=== PATIENT | female | born 1940 | race Caucasian/White ===

== ENCOUNTER 2017-01-23 12:12 | Inpatient (IN) | payer MEDICARE ==
[2017-01-23] VITALS (21 sets, daily range): BP systolic 133–218; BP diastolic 56–88; PULSE 56–76; RESP 16–22; TEMP 98.6–98.9; O2SAT 94–100
[~2017-01-23] VITALS: Ht 160 cm; Wt 66.0 kg
[~2017-01-23 12:12] MED LIST: ASPI81 CHEW; AZIT250T74 PO; CARV3.125 PO; CEFU1TAB43 PO; FLUC200T63 PO; LANTUS2P SC; LISI-360 PO; NOVOLOGP2 SQ; NYSTT TOPICAL; PANT40IN3 PO; SINE25100 PO
[2017-01-23] MEDS ORDERED: SODIUM CHLOR 0.9% 1000 ML INJ 1,000 ML IV ONE (12:18)
[2017-01-23 12:31] LABS: AUTOMATED NEUTROPHIL # 8.8 TH/MM3 (1.8-7.7); BASOPHIL # 0.1 TH/MM3 (0-0.2); BASOPHIL % 1.1 % (0.0-2.0); EOSINOPHIL # 0.3 TH/MM3 (0-0.4); EOSINOPHIL % 2.3 % (0.0-4.0); HEMATOCRIT 38.9 % (35.0-46.0); HEMO FLAGS DIFF FINAL; LYMPH % 21.8 % (9.0-44.0); LYMPHOCYTE # 2.9 TH/MM3 (1.0-4.8); MEAN CELL VOLUME 95.2 FL (80.0-100.0); MEAN CORPUSCULAR HGB CONC 33.6 % (32.0-36.0); MONO % 8.5 % (0.0-8.0); NEUT % 66.3 % (16.0-70.0); PLATELET COUNT 305 TH/MM3 (150-450); RED BLOOD COUNT 4.09 MIL/MM3 (4.00-5.30); RED CELL DISTRIBUTION WIDTH 13.7 % (11.6-17.2); WHITE BLOOD COUNT 13.3 TH/MM3 (4.0-11.0)
[2017-01-23 12:33] LABS: I-STAT POTASSIUM 4.4 MMOL/L (3.5-4.9); I-STAT SODIUM 139 MMOL/L (138-146)
--- NOTE | 2017-01-23 12:39 | RADRPT ---
EXAM DATE/TIME: 01/23/2017 12:24 [facility] COMPARISON: CT BRAIN W/O CONTRAST, October 17, 2015, 16:34. INDICATIONS : Stroke alert, right side weakness. RADIATION DOSE: 34.89 CTDIvol (mGy) This report was called at 1235. MEDICAL HISTORY : Non-responsive. SURGICAL HISTORY : Non-responsive. ENCOUNTER: Initial ACUITY: 1 day PAIN SCALE: Non-responsive LOCATION: cranial TECHNIQUE: Multiple contiguous axial images were obtained of the head. Using automated exposure control and adj ustment of the mA and/or kV according to patient size, radiation dose was kept as low as reasonably a chievable to obtain optimal diagnostic quality images. DICOM format image data is available electro nically for review and comparison. FINDINGS: CEREBRUM: Mild atrophy. No evidence of midline shift, mass lesion, hemorrhage or acute infarction. No extra-ax ial fluid collections are seen. POSTERIOR FOSSA: The cerebellum and brainstem are intact. The 4th ventricle is midline. The cerebellopontine angle i s unremarkable. EXTRACRANIAL: The visualized portion of the orbits is intact. SKULL: The calvaria is intact. No evidence of skull fracture. CONCLUSION: Mild atrophy otherwise negative.. Pierre Rod MD FACR on January 23, 2017 at 12:37 Board Certified Radiologist. This report was verified electronically.
[2017-01-23] MEDS ORDERED: niCARdipine INJ 25 MG in SODIUM CHLOR 0.9% 250 ML INJ 240 ML IV ONE (12:45)
[2017-01-23] MEDS ORDERED: LABETALOL HCL 100 MG/20 ML VIAL IV PUSH ONE (12:45)
[2017-01-23 12:48] LABS: PROTHROMBIN TIME - PATIENT 10.9 SEC (9.8-11.6)
[2017-01-23 13:01] LABS: CREATINE KINASE 252 U/L (26-192)
[2017-01-23 13:13] LABS: CKMB 2.3 NG/ML (0.5-3.6)
[2017-01-23 13:24] LABS: BACTERIA, URINE MANY /hpf; BLOOD, URINE NEG (NEG); GLUCOSE,URINE 300 mg/dL (NEG); KETONE, URINE NEG (NEG); NITRITE,URINE POS (NEG); SQUAMOUS EPITHELIAL CELL URINE 1 /hpf (0-5); URINE COLOR LIGHT-YELLOW (YELLW/STRAW)
[2017-01-23] MEDS ORDERED: MISCELLANEOUS NURSING INFORMATION XX PRN (13:45)
[2017-01-23] MEDS ORDERED: SODIUM CHLORIDE 0.9% 50 ML BAG IVF ONE (13:45)
[2017-01-23] MEDS ORDERED: ALTEPLASE BOLUS 9 MG/9 ML SYR IV ONE (13:45)
--- NOTE | 2017-01-23 13:52 | PD ---
HPI Chief Complaint: Stroke Alert Time Seen by Provider: 12:18 Travel History International Travel<30 days: No Contact w/Intl Traveler<30days: No Traveled to known affect area: No History of Present Illness HPI Patient is a 76 year old female brought in by EMS as a stroke alert. Per EMS, symptoms started about 15 minutes prior to their arrival, which was 30 minutes from arrival in the ED. Patient developed right sided weakness and slurred speech per EMS. Patient is awake and alert, and says she feels "ok." She says she has not had any headache. She denies nausea or vomiting. She denies chest pain or shortness of breath. She has not noticed that her right side is weak. Per daughter, she had a stroke about a year ago and was here in the hospital for a while. Daughter states at that time she had found her on the porch barely breathing. She has been in the detention since that episode. PFSH Past Medical History Autoimmune Disease: Yes (PARKINSONS) Depression: Yes High Cholesterol: Yes Dementia: Yes Diabetes: Yes Patient Takes Glucophage: Yes Diminished Hearing: No Hypertension: Yes Parkinson's Disease: Yes Menopausal: Yes Past Surgical History Surgical History: No Previous Surgery Social History Alcohol Use: No Tobacco Use: Yes Substance Use: No Allergies-Medications (Allergen,Severity, Reaction): Coded Allergies: iodine (Unverified Allergy, Unknown, IVP, 01/23/17) potassium iodide (Unverified Allergy, Unknown, IVP, 01/23/17) povidone-iodine (Unverified Allergy, Unknown, IVP, 01/23/17) sodium iodide (Unverified Allergy, Unknown, IVP, 01/23/17) sodium iodide (Unverified Allergy, Unknown, IVP, 01/23/17) Reported Meds & Prescriptions Reported Meds & Active Scripts Active Reported Vistaril (Hydroxyzine Pamoate) 25 Mg Cap 25 Mg PO Q8HR PRN Nicotine Patch (Nicotine) 14 Mg/24 Hr Patch 14 Mg T-DERMAL DAILY PRN Milk of Magnesia Liq (Magnesium Hydroxide) 400 Mg/5 Ml Susp 30 Ml PO HS PRN Ibuprofen 400 Mg Tab 400 Mg PO Q6H PRN Enema Disposable (Sodium Phosphates) 19 Gram-7 Gram/118 Ml [place] 1 Applic RECTAL IN THE AM PRN Dulcolax Supp (Bisacodyl) 10 Mg Supp 10 Mg RECTAL IN THE AM PRN Sinemet (Carbidopa-Levodopa) 25-100 Mg Tab 1 Tab PO Q8HR Risperdal (Risperidone) 0.5 Mg Tab 0.5 Mg PO TID BRAND MEDICALLY NECESSARY Humulin R Inj (Insulin Human Regular) 1,000 Unit/10 Ml Vial 0-10 Units SQ TID Inject as per sliding scale, if:0-200=0 units, 201-250=2 units, 251-300=4 units, 301-350=6 units, 351-400=8 units, 401-450=10 units, if BS less than 60 or higher than 450, call Humulin R Inj (Insulin Human Regular) 1,000 Unit/10 Ml Vial 7 Units SQ TID Metformin (Metformin HCl) 1,000 Mg Tab 1,000 Mg PO BID Cranberry Tablet (Cranberry Conc/C/Bacill Coag) 450 Mg-30 Mg-50 Million Cell Tablet 1 Tab PO BID Coreg (Carvedilol) 3.125 Mg Tab 3.125 Mg PO Q12HR Pantoprazole (Pantoprazole Sodium) 40 Mg Tab 40 Mg PO DAILY Namzaric (Memantine-Donepezil) 28-10 Mg Cap 1 Cap PO DAILY Lisinopril 2.5 Mg Tab 2.5 Mg PO DAILY Invokana (Canagliflozin) 100 Mg Tab 100 Mg PO DAILY Take before 1st meal of day. Lantus Inj (Insulin Glargine) 1,000 Unit/10 Ml Vial 30 Units SQ DAILY Celexa (Citalopram Hydrobromide) 20 Mg Tab 20 Mg PO DAILY Aspirin Adult Low Strength (Aspirin) 81 Mg Tabdr 81 Mg PO DAILY Aricept (Donepezil HCl) 10 Mg Tablet 10 Mg PO HS Review of Systems Except as stated in HPI: all other systems reviewed are Neg General / Constitutional: No: Fever, Chills Eyes: No: Blurred Vision HENT: No: Headaches, Lightheadedness Cardiovascular: No: Chest Pain or Discomfort Respiratory: No: Shortness of Breath Gastrointestinal: No: Nausea, Vomiting Musculoskeletal: No: Pain Skin: No Change in Pigmentation Neurologic: Positive: Weakness, Sensory Disturbance Physical Exam Narrative GENERAL: Awake and alert, in no acute distress. SKIN: Focused skin assessment warm/dry. No signs of infection. HEAD: Atraumatic. Normocephalic. EYES: Pupils equal and round. No scleral icterus. Extraocular movements intact. ENT: Mucous membranes pink and moist. NECK: Trachea midline. No JVD. CARDIOVASCULAR: Regular rate and rhythm. No murmur appreciated. RESPIRATORY: No accessory muscle use. Clear to auscultation. Breath sounds equal bilaterally. GASTROINTESTINAL: Abdomen soft, non-tender, nondistended. Hepatic and splenic margins not palpable. MUSCULOSKELETAL: No obvious deformities. No clubbing. No cyanosis. No edema. NEUROLOGICAL: Awake and alert. Mild slurred speech. Slight facial droop on the right. Unable to move right arm. No resistance to gravity of the right arm. Minimal effort against gravity of the right leg, unable to lift the right leg on her own. 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 Data Data Last Documented VS Vital Signs Date Time Temp Pulse Resp B/P (MAP) Pulse Ox O2 Delivery O2 Flow Rate FiO2 01/23/17 13:51 64 18 139/59 (85) 97 Nasal Cannula 2.00 01/23/17 12:15 21 01/23/17 12:14 98.9 Orders Orders Diet Npo (01/23/17 Lunch) Activity Bed Rest (01/23/17 ) Electrocardiogram (01/23/17 ) I-Stat Creatinine (01/23/17 12:18) I-Stat Profile (01/23/17 12:18) Prothrombin Time / Inr (Pt) (01/23/17 12:18) Act Partial Throm Time (Ptt) (01/23/17 12:18) Complete Blood Count With Diff (01/23/17 12:18) Fibrinogen (01/23/17 12:18) Creatine Kinase (Cpk) (01/23/17 12:18) Troponin I (01/23/17 12:18) Ua Includes Microscopic (01/23/17 12:18) Drug Screen, Random Urine (01/23/17 12:18) Type And Screen (01/23/17 12:18) Ct Brain W/O Iv Contrast(Rout) (01/23/17 ) Chest, Single Ap (01/23/17 ) Consult Neurology (01/23/17 ) Blood Glucose (01/23/17 12:18) Ecg Monitoring (01/23/17 12:18) Neuro Checks Q2HX12,Q4H (01/23/17 12:18) Nursing Bedside Swallow Assess .ONCE (01/23/17 12:18) Iv Access Insert/Monitor (01/23/17 12:18) NPO (01/23/17 12:18) Oximetry (01/23/17 12:18) Oxygen Administration (01/23/17 12:18) Sodium Chlor 0.9% 1000 Ml Inj (Ns 1000 M (01/23/17 12:18) Resp Oxygen Jc C Titrat 1-4 L (01/23/17 12:18) Cath For Specimen (01/23/17 12:18) Labetalol Inj (Trandate Inj) (01/23/17 12:45) Nicardipine Inj (Cardene Inj) (01/23/17 12:45) Urinary Catheter Insert/Apply (01/23/17 12:35) (Hub Use Only)Inp Phy Cons/Ref (01/23/17 ) CKMB (01/23/17 12:16) CKMB% (01/23/17 12:16) Mri Brain W&W/O Contrast (01/23/17 ) Mra Carotids W Contrast (01/23/17 ) Mra Brain W/O Contrast (Cow) (01/23/17 ) ^ Call Pharmacy (01/23/17 13:45) Nih Stroke Scale - Nihss .ONCE (01/23/17 13:45) Anticoagulant Alert (01/23/17 13:45) ^ Post Infusion Restrictions (01/23/17 13:45) ^ Medication Alert (01/23/17 13:45) Vital Signs (Adult) .As directed (01/23/17 13:45) Notify Dr: Blood Pressure (01/23/17 13:45) ^ Medication Alert (01/23/17 13:45) Alteplase Bolus (Activase Bolus) (01/23/17 13:45) Alteplase Drip (Activase Drip) (01/23/17 14:00) Sodium Chloride 0.9% Inj (Ns Inj) (01/23/17 13:45) [facility] (01/23/17 13:45) Admit Order (Ed Use Only) (01/23/17 ) Vital Signs (Adult) Q4H (01/23/17 13:54) Activity Bed Rest (01/23/17 13:54) Labs Laboratory Tests Test 01/23/17 12:16 01/23/17 13:00 White Blood Count 13.3 TH/MM3 Red Blood Count 4.09 MIL/MM3 Hemoglobin 13.1 GM/DL Bedside Hemoglobin 13.3 G/DL Hematocrit 38.9 % Bedside Hematocrit 39.0 % Mean Corpuscular Volume 95.2 FL Mean Corpuscular Hemoglobin 32.0 PG Mean Corpuscular Hemoglobin Concent 33.6 % Red Cell Distribution Width 13.7 % Platelet Count 305 TH/MM3 Mean Platelet Volume 8.3 FL Neutrophils (%) (Auto) 66.3 % Lymphocytes (%) (Auto) 21.8 % Monocytes (%) (Auto) 8.5 % Eosinophils (%) (Auto) 2.3 % Basophils (%) (Auto) 1.1 % Neutrophils # (Auto) 8.8 TH/MM3 Lymphocytes # (Auto) 2.9 TH/MM3 Monocytes # (Auto) 1.1 TH/MM3 Eosinophils # (Auto) 0.3 TH/MM3 Basophils # (Auto) 0.1 TH/MM3 CBC Comment DIFF FINAL Differential Comment Prothrombin Time 10.9 SEC Prothromb Time International Ratio 1.0 RATIO Activated Partial Thromboplast Time 26.0 SEC Fibrinogen 438 mg/dL Bedside Sodium 139 MMOL/L Bedside Potassium 4.4 MMOL/L Bedside Chloride 103 MMOL/L Bedside Blood Urea Nitrogen 20 MG/DL Bedside Creatinine 1.2 MG/DL Bedside Glucose 121 MG/DL Total Creatine Kinase 252 U/L Creatine Kinase MB 2.3 NG/ML Creatine Kinase MB % 0.9 % Troponin I LESS THAN 0.02 NG/ML Urine Color LIGHT-YELLOW Urine Turbidity HAZY Urine pH 7.0 Urine Specific [place] 1.009 Urine Protein NEG mg/dL Urine Glucose (UA) 300 mg/dL Urine Ketones NEG mg/dL Urine Occult Blood NEG Urine Nitrite POS Urine Bilirubin NEG Urine Urobilinogen LESS THAN 2.0 MG/DL Urine Leukocyte Esterase SMALL Urine RBC 3 /hpf Urine WBC 3 /hpf Urine Squamous Epithelial Cells 1 /hpf Urine Bacteria MANY /hpf MDM Medical Decision Making Medical Screen Exam Complete: Yes Emergency Medical Condition: Yes Medical Record Reviewed: Yes Interpretation(s) ECG shows normal sinus rhythm at 66, no ST elevation or depression. Differential Diagnosis TIA versus CVA versus ICH versus electrolyte abnormality versus sepsis Narrative Course Patient is a 76-year-old female who is brought in as a stroke alert. She had onset of symptoms 30 minutes prior to arrival. On exam she has right-sided hemiparesis. CT of head immediately performed, shows no evidence of bleed. IV was established and labs sent. Patient had an elevated blood pressure. She was given a bolus of labetalol and started on a Cardene drip. Once her blood pressure was controlled, she was started on TPA. Patient verbally consented for the TPA. She has no contraindications at this time. Neurology was consulted. Patient was monitored on the TPA with some improvement of her symptoms. She did not have a CTA of her head as she is allergic to IV contrast. Patient admitted for further management. Critical Care Narrative Aggregate critical care time was 35 minutes. Time to perform other separately billable procedures was not included in the critical care time. My time did not include minutes spent treating any other patients simultaneously or on activities that did not directly contribute to the patient's treatment. The services I provided to this patient were to treat and/or prevent clinically significant deterioration that could result in: Serious illness or I provided critical care services requiring my management, as noted below: Chart data review, documentation time, medication orders and management, vital sign assessments/reviewing monitor data, ordering and reviewing lab tests, ordering and interpreting/reviewing x-rays and diagnostic studies, care of the patient and discussion of the patient with the admitting physicians. Diagnosis Primary Impression: CVA (cerebral vascular accident) Qualified Codes: I63.9 - Cerebral infarction, unspecified Admitting Information Admitting Physician Requests: Admit Amita Mckeon MD Jan 23, 2017 13:52
[2017-01-23] MEDS ORDERED: ALTEPLASE DRIP IV ONE (14:00)
--- NOTE | 2017-01-23 14:53 | MB ---
cc: LIN WASSERMAN M.D. DATE OF CONSULTATION: 01/23/2017 HISTORY OF PRESENT ILLNESS The patient is seen in neurological consultation. She was called in as a Stroke Alert. I spoke to Dr. Alegria on a couple of occasions and it was felt she was a candidate for TPA which was subsequently given. Her blood pressure was over initially but this was treated and then the TPA given. When I came in she had just completed the maintenance portion of the TPA. The daughter is at the bedside. The patient developed right hemiparesis around 11:30 this morning. She lives in a nursing facility. She had a stroke last year. She went into a rehab in October. She also has had TIAs in the past. She has been taking aspirin. There is a history of dementia and Parkinson's. She takes Aricept and Namenda. The EKG shows sinus rhythm. The CT brain was negative for acute process. NEUROLOGICAL EXAMINATION On exam the patient was awake, calm and cooperative. She knows her age and knows the place but she is quiet overall and seems to have some difficulty expressing herself. She is normally much more verbal according to the daughter. The pupils were about the same size and reactive. The patient was able to count fingers bilaterally. There is some mild to moderate right facial weakness, severe right hemiparesis. The arm and leg are about 1/5 at this point, weaker more distally than proximally. Reflexes were 1+ throughout, plantar response probably flexor bilaterally. LABORATORY CBC with white count 13.3, hemoglobin 13.1, platelets 3005. Glucose 121. CPK 252. Creatinine slightly up to 1.2, BUN 20. ASSESSMENT Acute ischemic cerebrovascular event, left hemisphere, causing right hemiparesis, some aphasia. TPA was given and she seems to be doing well so far with slight improvement on the right hemiparetic syndrome. PLAN/RECOMMENDATIONS She is going to be transferred to the intensive care unit for close monitoring. I plan on repeating imaging study of the brain later on but initially wanted to have an MRI and MRA. She is not a good candidate for CT angio because of allergy to contrast. I discussed this with the ED physician earlier today and also spoke to the patient's RN. We will wait on the MRA to see if interventional embolectomy would be a possibility. Thank you for asking us to assist in her care. MD GREG Crowder /2:37 PM /2:45 PM
[2017-01-23] MEDS ORDERED: GADODIAMIDE PF 287 MG/ML 20 ML VIAL (for RAD MRI) IVCONTRAST ONE (15:26)
--- NOTE | 2017-01-23 15:40 | RADRPT ---
EXAM DATE/TIME: 01/23/2017 14:43 [facility] COMPARISON: No previous studies available for comparison. INDICATIONS : Right sided weakness. Slurred speech. MEDICAL HISTORY : Hypertension. Parkinson's. cva. SURGICAL HISTORY : None. ENCOUNTER: Initial ACUITY: 1 day PAIN SCORE: 0/10 LOCATION: cranial Please note a normal MRA of the brain does not entirely exclude the possibility of a small aneurysm, nor the possibility of distal intracranial vessel disease. TECHNIQUE: 3D time of flight MRA was performed. Source images, multiplanar STS MIP, and 3D volume MIP reconstru ctions were reviewed. FINDINGS: There is excellent visualization of the major intracranial arteries out to the second-order branch ve ssels. There is no evidence for aneurysm, vessel truncation or stenosis, and no evidence for vascula r malformation. CONCLUSION: 1. Unremarkable MR angiography of the brain. Manjit Lowry MD on January 23, 2017 at 15:37 Board Certified Radiologist. This report was verified electronically.
--- NOTE | 2017-01-23 15:41 | EKG ---
Date Performed: 01/23/2017 Time Performed: 13:29:02 PTAGE: 76 years EKG: Sinus rhythm SEPTAL MYOCARDIAL INFARCTION ABNORMAL ECG Compared to prior electrocardiiogram, rate has slowed and ST T-wave changes are less. Septal infarct pattern is present. PREVIOUS TRACING : 10/08/2015 18.30 DOCTOR: Harmeet Del Cid Interpretating Date/Time 01/23/2017 15:41:12
--- NOTE | 2017-01-23 15:43 | RADRPT ---
EXAM DATE/TIME: 01/23/2017 14:43 [facility] COMPARISON: No previous studies available for comparison. INDICATIONS : Right sided weakness. CONTRAST: 20 cc Omniscan (gadodiamide) IV MEDICAL HISTORY : Hypertension. Parkinson's. CVA. SURGICAL HISTORY : None. ENCOUNTER: Initial ACUITY: 1 day PAIN SCORE: 0/10 LOCATION: cranial TECHNIQUE: Multiplanar, multisequence MRI of the brain was performed both prior to and following the administrat ion of paramagnetic contrast. FINDINGS: MRI of the brain is performed in sagittal, axial and coronal planes. The craniocervical junction and midline structures are unremarkable. The ventricles are enlarged out of proportion to the sulcal atro phy. In addition the third ventricle is somewhat prominent. Clinical correlation would be helpful in regards to the possibility of normal pressure hydrocephalus. There is periventricular hyperintensity on the T2 weighted images consistent with small vessel vascular disease slightly more than expected i n a patient of this age. Following the administration of contrast no abnormal enhancement is identifi ed. Diffusion weighted images demonstrate no abnormality. There is no evidence of acute cortical infa rction, acute hemorrhage, mass effect or midline shift is seen. Posterior fossa structures are unrema rkable. CONCLUSION: 1. No evidence of acute intracranial pathology. Chronic ischemic changes as above. Possible normal p ressure hydrocephalus. Correlation with clinical findings is necessary. 1. Manjit Lowry MD on January 23, 2017 at 15:38 Board Certified Radiologist. This report was verified electronically.
[2017-01-23] MEDS ORDERED: SODIUM CHLORIDE 0.9% FLUSH 10 ML FLUSH IV FLUSH PRN (15:45)
[2017-01-23] MEDS ORDERED: ACETAMINOPHEN 325 MG TAB PO PRN (15:45)
[2017-01-23] MEDS ORDERED: ONDANSETRON HCL 4 MG/2 ML VIAL IV PUSH PRN (15:45)
[2017-01-23] MEDS ORDERED: CHLORHEXIDINE GLUCONATE 2 % 1 PACK (2 CLOTHS) TOP PRN (15:45)
[2017-01-23] MEDS ORDERED: RESP: ALBUTEROL 2.5 MG/IPRATROPIUM 0.5 MG NEB (PRN) INH (15:45)
[2017-01-23] MEDS ORDERED: MISCELLANEOUS NURSING INFORMATION XX SCH (15:45)
--- NOTE | 2017-01-23 15:53 | HHI.HP ---
HPI Service Critical Care Medicine Primary Care Physician Unknown Admission Diagnosis CVA Diagnosis: Chief Complaint: Difficulty with speech. Weak right arm. Travel History International Travel<30 Days: No Contact w/Intl Traveler <30 Da: No Traveled to Known Affected Are: No History of Present Illness 76 y/o right-handed woman developed sudden right arm and leg weakness with slurring of speech about 15 - 20 minutes prior to arrival to ED. Head CT and MRA negative for acute injury; received tPA in ED. She had a large CVA about a year ago. No chest pain, SOB, nausea, vomiting, headache, or seizures. Speech intermittently improved after tPA. Strength right arm improved, right leg slightly improved. Past Family Social History Allergies: Coded Allergies: iodine (Unverified Allergy, Unknown, IVP, 01/23/17) potassium iodide (Unverified Allergy, Unknown, IVP, 01/23/17) povidone-iodine (Unverified Allergy, Unknown, IVP, 01/23/17) sodium iodide (Unverified Allergy, Unknown, IVP, 01/23/17) sodium iodide (Unverified Allergy, Unknown, IVP, 01/23/17) Past Medical History Past Medical History Autoimmune Disease: Yes (PARKINSONS) Depression: Yes High Cholesterol: Yes Dementia: Yes Diabetes: Yes Patient Takes Glucophage: Yes Diminished Hearing: No Hypertension: Yes Parkinson's Disease: Yes Menopausal: Yes Past Surgical History Surgical History: No Previous Surgery Social History Alcohol Use: No Tobacco Use: Yes Substance Use: No Allergies-Medications Allergies-Medications (Allergen,Severity, Reaction): Coded Allergies: iodine (Unverified Allergy, Unknown, IVP, 01/23/17) potassium iodide (Unverified Allergy, Unknown, IVP, 01/23/17) povidone-iodine (Unverified Allergy, Unknown, IVP, 01/23/17) sodium iodide (Unverified Allergy, Unknown, IVP, 01/23/17) sodium iodide (Unverified Allergy, Unknown, IVP, 01/23/17) Reported Meds & Prescriptions Reported Meds & Active Scripts Active Physical Exam Vital Signs Vital Signs Date Time Temp Pulse Resp B/P (MAP) Pulse Ox O2 Delivery O2 Flow Rate FiO2 01/23/17 15:29 73 18 148/56 (86) 97 Nasal Cannula 2.00 01/23/17 15:05 72 20 142/63 (89) 95 Room Air 01/23/17 14:45 64 18 150/82 (104) 96 Nasal Cannula 2.00 01/23/17 14:20 66 18 183/77 (112) 96 Nasal Cannula 2.00 01/23/17 14:14 65 18 164/67 (99) 96 Nasal Cannula 2.00 01/23/17 14:01 63 16 150/67 (94) 96 Nasal Cannula 2.00 01/23/17 13:51 64 18 139/59 (85) 97 Nasal Cannula 2.00 01/23/17 13:41 73 20 152/69 (96) 98 Nasal Cannula 2.00 01/23/17 13:32 67 18 149/67 (94) 96 Nasal Cannula 2.00 01/23/17 13:30 66 216/88 01/23/17 13:20 70 20 165/71 (102) 97 Nasal Cannula 2.00 01/23/17 12:45 59 16 188/81 (116) 100 Nasal Cannula 01/23/17 12:30 72 18 218/88 (131) 97 Nasal Cannula 2.00 01/23/17 12:24 64 18 199/75 (116) 97 Room Air 01/23/17 12:15 96 Room Air 01/23/17 12:15 96 01/23/17 12:15 96 21 01/23/17 12:14 98.9 64 18 205/82 (123) 96 Physical Exam P 72, BP 146/82, R 16, Sats 96% Head: Atraumatic. Neck: Supple, protects airway well. Lungs: Clear. Heart: NL S1S2, RRR. No JVD Abdomen: Benign, soft, no guarding. Extremities: Warm, well perfused. Neuro: O X 3, alert. Speech improved by still slurred intermittently. Tracks with eyes. 3/5 right hand grasp. 2/5 left leg strength. Left 5/5 up and lower extremity. Laboratory Laboratory Tests Test 01/23/17 12:16 01/23/17 13:00 White Blood Count 13.3 Red Blood Count 4.09 Hemoglobin 13.1 Bedside Hemoglobin 13.3 Hematocrit 38.9 Bedside Hematocrit 39.0 Mean Corpuscular Volume 95.2 Mean Corpuscular Hemoglobin 32.0 Mean Corpuscular Hemoglobin Concent 33.6 Red Cell Distribution Width 13.7 Platelet Count 305 Mean Platelet Volume 8.3 Neutrophils (%) (Auto) 66.3 Lymphocytes (%) (Auto) 21.8 Monocytes (%) (Auto) 8.5 Eosinophils (%) (Auto) 2.3 Basophils (%) (Auto) 1.1 Neutrophils # (Auto) 8.8 Lymphocytes # (Auto) 2.9 Monocytes # (Auto) 1.1 Eosinophils # (Auto) 0.3 Basophils # (Auto) 0.1 CBC Comment DIFF FINAL Differential Comment Prothrombin Time 10.9 Prothromb Time International Ratio 1.0 Activated Partial Thromboplast Time 26.0 Fibrinogen 438 Bedside Sodium 139 Bedside Potassium 4.4 Bedside Chloride 103 Bedside Blood Urea Nitrogen 20 Bedside Creatinine 1.2 Bedside Glucose 121 Total Creatine Kinase 252 Creatine Kinase MB 2.3 Creatine Kinase MB % 0.9 Troponin I LESS THAN 0.02 Urine Color LIGHT-YELLOW Urine Turbidity HAZY Urine pH 7.0 Urine Specific [place] 1.009 Urine Protein NEG Urine Glucose (UA) 300 Urine Ketones NEG Urine Occult Blood NEG Urine Nitrite POS Urine Bilirubin NEG Urine Urobilinogen LESS THAN 2.0 Urine Leukocyte Esterase SMALL Urine RBC 3 Urine WBC 3 Urine Squamous Epithelial Cells 1 Urine Bacteria MANY Result Diagram: 01/23/17 1216 Caprini VTE Risk Assessment Caprini VTE Risk Assessment: Mod/High Risk (score >= 2) Caprini Risk Assessment Model Point Value = 1 Point Value = 2 Point Value = 3 Point Value = 5 Age 41-60 Minor surgery BMI > 25 kg/m2 Swollen legs Varicose veins or History of unexplained or recurrent spontaneous Oral contraceptives or hormone replacement Sepsis (< 1 month) Serious lung disease, including pneumonia (< 1 month) Abnormal pulmonary function Acute myocardial infarction Congestive heart failure (< 1 month) History of inflammatory bowel disease Medical patient at bed rest Age 61-74 Arthroscopic surgery Major open surgery (> 45 min) Laparoscopic surgery (> 45 min) Malignancy Confined to bed (> 72 hours) Immobilizing plaster cast Central venous access Age >= 75 History of VTE Family history of VTE Factor V Leiden Prothrombin [id number] Lupus anticoagulant Anticardiolipin antibodies Elevated serum homocysteine Heparin-induced thrombocytopenia Other congenital or acquired thrombophilia Stroke (< 1 month) Elective arthroplasty Hip, pelvis, or leg fracture Acute spinal cord injury (< 1 month) Prophylaxis Regimen Total Risk Factor Score Risk Level Prophylaxis Regimen 0-1 Low Early ambulation 2 Moderate Order ONE of the following: *Sequential Compression Device (SCD) *Heparin 5000 units SQ BID 3-4 Higher Order ONE of the following medications: *Heparin 5000 units SQ TID *Enoxaparin/Lovenox 40 mg SQ daily (WT < 150 kg, CrCl > 30 mL/min) *Enoxaparin/Lovenox 30 mg SQ daily (WT < 150 kg, CrCl > 10-29 mL/min) *Enoxaparin/Lovenox 30 mg SQ BID (WT < 150 kg, CrCl > 30 mL/min) AND/OR *Sequential Compression Device (SCD) 5 or more Highest Order ONE of the following medications: *Heparin 5000 units SQ TID (Preferred with Epidurals) *Enoxaparin/Lovenox 40 mg SQ daily (WT < 150 kg, CrCl > 30 mL/min) *Enoxaparin/Lovenox 30 mg SQ daily (WT < 150 kg, CrCl > 10-29 mL/min) *Enoxaparin/Lovenox 30 mg SQ BID (WT < 150 kg, CrCl > 30 mL/min) AND *Sequential Compression Device (SCD) Assessment and Plan Assessment and Plan Assessment: 1. Acute CVA. 2. Diabetes mellitus Type 2. 3. Hypertension. 4. Hx of CVA. Plan: 1. tPA infusion protocol. 2. Cardiac ECHO. 3. Hold chemical DVT px today. 4. Antiplatelet rx per neurologist. 5. BP control prn with labetalol, hydralazine. 6. Neuro checks. 7. Repeat Head CT after 24 hours, sooner for neuro change. Overall impression: Left hemispheric stroke received prompt tPA. Some early improvement. BP acceptable. Restart beat maryjane iv until taking PO. Zurdo Mittal MD Jan 23, 2017 15:53
[2017-01-23] MEDS: INSULIN ASPART SUPPLEMENTAL SCALE SQ SCH ×2 (16:00→21:32)
[2017-01-23] MEDS ORDERED: GLUCAGON 1 MG/ML VIAL OTHER PRN (16:00)
[2017-01-23] MEDS ORDERED: DEXTROSE 50% IN WATER 50 ML VIAL(D50) IV PUSH PRN (16:00)
--- NOTE | 2017-01-23 16:04 | RADRPT ---
EXAM DATE/TIME: 01/23/2017 15:36 [facility] COMPARISON: CHEST SINGLE AP, October 17, 2015, 12:40. INDICATIONS : Stroke alert. MEDICAL HISTORY : Myocardial infarction. Spinal stenosis. many TIA's SURGICAL HISTORY : None. ENCOUNTER: Initial ACUITY: 1 day PAIN SCORE: 0/10 LOCATION: Bilateral chest FINDINGS: A single view of the chest demonstrates the lungs to be symmetrically aerated without evidence of mas s, infiltrate or effusion. Mild chronic interstitial changes are stable. The cardiomediastinal conto urs are unremarkable. Osseous structures are intact. CONCLUSION: No acute disease. Jesus Brown Jr., MD on January 23, 2017 at 16:01 Board Certified Radiologist. This report was verified electronically.
--- NOTE | 2017-01-23 16:08 | RADRPT ---
EXAM DATE/TIME: 01/23/2017 14:43 [facility] COMPARISON: MRI BRAIN W & W/O CONTRAST, January 23, 2017, 14:43. INDICATIONS : Right side weakness. CONTRAST: 20 cc Omniscan (gadodiamide) IV MEDICAL HISTORY : Hypertension. Parkinson's. Stroke SURGICAL HISTORY : None. ENCOUNTER: Initial ACUITY: 1 day PAIN SCORE: 0/10 LOCATION: neck Percent stenosis is calculated using the diameter of the stenotic region over the diameter of the nor mal distal internal carotid artery. TECHNIQUE: Bolus infused MRA of the extracranial circulation was performed using a neurovascular coil. Post pro cessing was performed including rotating subvolume maximum intensity projections of each carotid sharee ry, rotating full volume maximum intensity projections of both carotid arteries, sagittal and coronal sliding thin slab reformations of each carotid artery, and left oblique sliding thin slab reformatio n through the aortic arch to include the origin of the arch branch vessels. FINDINGS: AORTIC ARCH: There is a three vessel origin of the great vessels from the aorta. No evidence of ostial narrowing. RIGHT CAROTID: Atherosclerotic plaque is seen generating irregular luminal contour to the proximal ICA. Utilizing NA SCET criteria there is a 40% stenosis of the proximal ICA. No ulceration. The more cephalad portion o f the extracranial ICA is patent. The ECA and CCA are patent. LEFT CAROTID: The appearance of the carotid bulb and proximal ICA are suggestive of prior endarterectomy. No stenos is observed. The common carotid, ICA, and ECA are patent. VERTEBRALS: The vertebral arteries have a symmetric diameter. No stenotic lesions are seen. CONCLUSION: 1. 40% stenosis involving the proximal ICA. Suspected post endarterectomy changes involving the left which are patent. Patent vertebral arteries. Jesus Brown Jr., MD on January 23, 2017 at 16:03 Board Certified Radiologist. This report was verified electronically.
[2017-01-23] MEDS ORDERED: CANA100T PO (16:31)
[2017-01-23] MEDS ORDERED: LANTUS2P SQ (16:31)
[2017-01-23] MEDS ORDERED: ARIC10TA2 PO (16:31)
[2017-01-23] MEDS ORDERED: CELE20TA PO (16:31)
[2017-01-23] MEDS ORDERED: LISI2.5T3 PO (16:31)
[2017-01-23] MEDS ORDERED: MEMA1CAP2 PO (16:31)
[2017-01-23] MEDS ORDERED: ASPI1TAB91 PO (16:31)
[2017-01-23] MEDS ORDERED: PANT40TA3 PO (16:32)
[2017-01-23] MEDS ORDERED: SINE25TA PO (16:57)
[2017-01-23] MEDS ORDERED: MILKSUS PO (16:57)
[2017-01-23] MEDS ORDERED: VIST25CA PO (16:57)
[2017-01-23] MEDS ORDERED: IBUP400T20 PO (16:57)
[2017-01-23] MEDS ORDERED: CRAN1TAB5 PO (16:57)
[2017-01-23] MEDS ORDERED: ENEMENE5 RECTAL (16:57)
[2017-01-23] MEDS ORDERED: INSU100V2 SQ ×2 (16:57)
[2017-01-23] MEDS ORDERED: METF1000 PO (16:57)
[2017-01-23] MEDS ORDERED: CARV3.125 PO (16:57)
[2017-01-23] MEDS ORDERED: NICO14DI T-DERMAL (16:57)
[2017-01-23] MEDS ORDERED: DULC10SU3 RECTAL (16:57)
[2017-01-23] MEDS ORDERED: RISP0.5T20 PO (16:57)
[2017-01-23] MEDS: METOPROLOL TARTRATE 5 MG/5 ML VIAL IV PUSH SCH (18:00)
[2017-01-23] MEDS: SODIUM CHLOR 0.9% 1000 ML INJ 1,000 ML IV SCH (20:00)
[2017-01-23] MEDS: SODIUM CHLORIDE 0.9% FLUSH 10 ML FLUSH IV FLUSH SCH (20:00)
--- NOTE | 2017-01-23 20:27 | HHI.CCPN ---
History - Height: 160.02 cm Weight: 66.6 kg Allergies: Coded Allergies: iodine (Unverified Allergy, Unknown, IVP, 01/23/17) potassium iodide (Unverified Allergy, Unknown, IVP, 01/23/17) povidone-iodine (Unverified Allergy, Unknown, IVP, 01/23/17) sodium iodide (Unverified Allergy, Unknown, IVP, 01/23/17) sodium iodide (Unverified Allergy, Unknown, IVP, 01/23/17) Major 24 Hour Events RN called to inform me that patients paperwork from the [facility] states she is DNR. The [facility] admission record states DNR but there is not a [facility] DNR on the chart. The healthcare surrogate in Jovan Freeman, her son. I called him and he states that he wants his mom to be FULL CODE. He said he will discuss with family and readdress on Thursday when he gets back in town. Exam Patient Data - Vital Signs Date Time Temp Pulse Resp B/P (MAP) Pulse Ox O2 Delivery O2 Flow Rate FiO2 01/23/17 19:40 97 Nasal Cannula 2.00 01/23/17 19:30 94 Room Air 01/23/17 19:00 99 Nasal Cannula 2.00 01/23/17 17:50 01/23/17 17:37 98.6 73 22 158/70 (99) 97 01/23/17 17:36 96 Nasal Cannula 2.00 01/23/17 17:18 98 Nasal Cannula 2.00 01/23/17 16:00 66 18 133/62 (85) 97 Nasal Cannula 2.00 01/23/17 15:29 73 18 148/56 (86) 97 Nasal Cannula 2.00 01/23/17 15:05 72 20 142/63 (89) 95 Room Air 01/23/17 14:45 64 18 150/82 (104) 96 Nasal Cannula 2.00 01/23/17 14:20 66 18 183/77 (112) 96 Nasal Cannula 2.00 01/23/17 14:14 65 18 164/67 (99) 96 Nasal Cannula 2.00 01/23/17 14:01 63 16 150/67 (94) 96 Nasal Cannula 2.00 01/23/17 13:51 64 18 139/59 (85) 97 Nasal Cannula 2.00 01/23/17 13:41 73 20 152/69 (96) 98 Nasal Cannula 2.00 01/23/17 13:32 67 18 149/67 (94) 96 Nasal Cannula 2.00 01/23/17 13:30 66 216/88 01/23/17 13:20 70 20 165/71 (102) 97 Nasal Cannula 2.00 01/23/17 12:45 59 16 188/81 (116) 100 Nasal Cannula 01/23/17 12:30 72 18 218/88 (131) 97 Nasal Cannula 2.00 01/23/17 12:24 64 18 199/75 (116) 97 Room Air 01/23/17 12:15 96 Room Air 01/23/17 12:15 96 01/23/17 12:15 96 21 01/23/17 12:14 98.9 64 18 205/82 (123) 96 Intake & Output 01/23/17 01/23/17 01/24/17 15:00 23:00 07:00 Intake Total 159.5 ml Output Total 975 ml Balance -815.5 ml Intake IV Total 159.5 ml Output Urine Total 975 ml # Bowel Movements 0 Results CBC/BMP: 01/23/17 1216 Samantha Jaffe MD Jan 23, 2017 20:27
[2017-01-23] MEDS: FAMOTIDINE 20 MG/2 ML VIAL IV PUSH SCH (21:32)
[2017-01-23] MEDS: hydrALAZINE HCL 20 MG/ML VIAL IV PUSH PRN (22:10)
[2017-01-24] VITALS (11 sets, daily range): BP systolic 110–162; BP diastolic 56–109; PULSE 62–99; RESP 16–24; TEMP 98.2–98.8; O2SAT 93–97
[2017-01-24] MEDS: CHLORHEXIDINE GLUCONATE 2 % 1 PACK (2 CLOTHS) TOP SCH (04:00)
[2017-01-24] MEDS: INSULIN ASPART SUPPLEMENTAL SCALE SQ SCH ×4 (04:00→21:44)
[2017-01-24 04:43] LABS: BICARBONATE 25.4 MEQ/L (21.0-32.0)
[2017-01-24 04:44] LABS: HDL CHOLESTEROL 34.2 MG/DL (40.0-60.0)
[2017-01-24] MEDS: SODIUM CHLOR 0.9% 1000 ML INJ 1,000 ML IV SCH ×2 (05:08→18:23)
[2017-01-24] MEDS: METOPROLOL TARTRATE 5 MG/5 ML VIAL IV PUSH SCH ×3 (05:21→11:34)
--- NOTE | 2017-01-24 07:55 | HHI.CCPN ---
Subjective Remarks/Hospital Course 76 y/o right-handed woman developed sudden right arm and leg weakness with slurring of speech about 15 - 20 minutes prior to arrival to ED. Head CT and MRA negative for acute injury; received tPA in ED. She had a large CVA about a year ago. No chest pain, SOB, nausea, vomiting, headache, or seizures. Speech intermittently improved after tPA. Strength right arm improved, right leg slightly improved. 01/24: Speech clipped. One or two word responses. Right hand grasp weaker, 4/5, right leg 4/5. Left side 5/5. BP control acceptable. Objective Vital Signs Date Time Temp Pulse Resp B/P (MAP) Pulse Ox O2 Delivery O2 Flow Rate FiO2 01/24/17 04:29 94 01/24/17 04:00 98.5 62 20 162/72 (102) 01/23/17 19:40 Nasal Cannula 2.00 01/23/17 12:15 21 Intake and Output 01/24/17 01/24/17 01/25/17 08:00 16:00 00:00 Intake Total 798 ml Output Total 1025 ml Balance -227 ml Result Diagram: 01/23/17 1216 01/24/17 0349 Objective Remarks P 73, BP 147/83, R 14, Sats 96% Head: Atraumatic. Neck: Supple, protects airway well. Lungs: Clear. No adventitious sounds. Comfortable effort. Heart: NL S1S2, RRR. No JVD Abdomen: Benign, soft, no guarding. BS active. Extremities: Warm, well perfused. Neuro: O X 3, alert. Speech improved by still slurred intermittently. Tracks with eyes. 4/5 right hand grasp. 4/5 right leg strength. Left 5/5 up and lower extremity. A/P Assessment and Plan Assessment: 1. Acute CVA. 2. Diabetes mellitus Type 2. 3. Hypertension. 4. Hx of CVA. Plan: 1. tPA infusion protocol. 2. Cardiac ECHO. 3. Hold chemical DVT px today. 4. Antiplatelet rx per neurologist. 5. BP control prn with labetalol, hydralazine. 6. Neuro checks. 7. Repeat Head CT after 24 hours, sooner for neuro change. 8. Swallow eval. Overall impression: Left hemispheric stroke received prompt tPA. Some early improvement. BP acceptable. Restart beat maryjane iv until taking PO. Zurdo Mittal MD Jan 24, 2017 07:55
[2017-01-24] MEDS: FAMOTIDINE 20 MG/2 ML VIAL IV PUSH SCH ×2 (08:31→21:45)
[2017-01-24] MEDS: SODIUM CHLORIDE 0.9% FLUSH 10 ML FLUSH IV FLUSH SCH ×2 (08:31→21:00)
[2017-01-24] MEDS: hydrALAZINE HCL 20 MG/ML VIAL IV PUSH PRN (08:35)
--- NOTE | 2017-01-24 09:00 | HHI.PR ---
Review/Management Daily Summary 01/24 much improved, now moves right lims well and no facial weakness speech probably normal wants to get up ok to start mobility after 24 hrs start asa, has another ct brain f/u post tpa lipid profile Subjective Subjective Comments No new neuro events reported No headache Active Medications Current Medications Medications (Trade) Dose Ordered Sig/Loki Route Start Time Stop Time Status Last Admin Miscellaneous Information No Heparin, Warfarin, Aspir... UNSCH PRN XX 01/23/17 13:45 01/24/17 13:44 Sodium Chloride 1,000 ml @ 75 mls/hr [id number] IV 01/23/17 15:45 01/24/17 05:08 (NS Flush) 2 ml UNSCH PRN IV FLUSH 01/23/17 15:45 (NS Flush) 2 ml BID IV FLUSH 01/23/17 21:00 01/24/17 08:31 (Tylenol) 650 mg Q6H PRN PO 01/23/17 15:45 (Morphine Inj) 2 mg Q2H PRN IV PUSH 01/23/17 15:45 01/24/17 00:00 (Pepcid Inj) 20 mg Q12HR IV PUSH 01/23/17 21:00 01/24/17 08:31 (Zofran Inj) 4 mg Q6H PRN IV PUSH 01/23/17 15:45 (Duoneb Neb) 1 ampule Q4HR NEB PRN INH 01/23/17 15:45 Miscellaneous Information 1 [id number] XX 01/23/17 15:45 (Chlorhexidine 2% Cloth) 3 pack Taper DAILY@04 TOP 01/24/17 04:00 01/20/18 03:59 (Chlorhexidine 2% Cloth) 3 pack UNSCH PRN TOP 01/23/17 15:45 (D50w (Vial) Inj) 50 ml UNSCH PRN IV PUSH 01/23/17 16:00 (Glucagon Inj) 1 mg UNSCH PRN OTHER 01/23/17 16:00 (NovoLOG SUPPLEMENTAL SCALE) 1 Q6H SQ 01/23/17 16:00 (Lopressor Inj) 2.5 mg Q6H IV PUSH 01/23/17 18:00 01/24/17 05:21 (Apresoline Inj) 10 mg Q2H PRN IV PUSH 01/23/17 18:00 01/24/17 08:35 Allergies Allergies Coded Allergies iodine (Unverified Allergy, Unknown, IVP, 01/23/17) potassium iodide (Unverified Allergy, Unknown, IVP, 01/23/17) povidone-iodine (Unverified Allergy, Unknown, IVP, 01/23/17) sodium iodide (Unverified Allergy, Unknown, IVP, 01/23/17) sodium iodide (Unverified Allergy, Unknown, IVP, 01/23/17) Exam I&O / VS Vital Signs Date Time Temp Pulse Resp B/P (MAP) Pulse Ox O2 Delivery O2 Flow Rate FiO2 01/24/17 04:29 94 01/24/17 04:00 98.5 62 20 162/72 (102) 93 01/24/17 00:00 74 19 123/59 (80) 93 01/23/17 23:00 76 01/23/17 20:00 98.8 56 21 157/66 (96) 94 01/23/17 19:40 97 Nasal Cannula 2.00 01/23/17 19:30 94 Room Air 01/23/17 19:00 99 Nasal Cannula 2.00 01/23/17 17:50 01/23/17 17:37 98.6 73 22 158/70 (99) 97 01/23/17 17:36 96 Nasal Cannula 2.00 01/23/17 17:18 98 Nasal Cannula 2.00 01/23/17 16:00 66 18 133/62 (85) 97 Nasal Cannula 2.00 01/23/17 15:29 73 18 148/56 (86) 97 Nasal Cannula 2.00 01/23/17 15:05 72 20 142/63 (89) 95 Room Air 01/23/17 14:45 64 18 150/82 (104) 96 Nasal Cannula 2.00 01/23/17 14:20 66 18 183/77 (112) 96 Nasal Cannula 2.00 01/23/17 14:14 65 18 164/67 (99) 96 Nasal Cannula 2.00 01/23/17 14:01 63 16 150/67 (94) 96 Nasal Cannula 2.00 01/23/17 13:51 64 18 139/59 (85) 97 Nasal Cannula 2.00 01/23/17 13:41 73 20 152/69 (96) 98 Nasal Cannula 2.00 01/23/17 13:32 67 18 149/67 (94) 96 Nasal Cannula 2.00 01/23/17 13:30 66 216/88 01/23/17 13:20 70 20 165/71 (102) 97 Nasal Cannula 2.00 01/23/17 12:45 59 16 188/81 (116) 100 Nasal Cannula 01/23/17 12:30 72 18 218/88 (131) 97 Nasal Cannula 2.00 01/23/17 12:24 64 18 199/75 (116) 97 Room Air 01/23/17 12:15 96 Room Air 01/23/17 12:15 96 01/23/17 12:15 96 21 01/23/17 12:14 98.9 64 18 205/82 (123) 96 Objective Radiology Results Last 48 hours Impressions Neck Magnetic Resonance Angiography 01/23/17 0000 Signed Impressions: Service Date/Time: Monday, January 23, 2017 14:43 - CONCLUSION: 1. 40%% stenosis involving the proximal ICA. Suspected post endarterectomy changes involving the left which are patent. Patent vertebral arteries. Jesus Brown Jr., MD Head Magnetic Resonance Angiography 01/23/17 0000 Signed Impressions: Service Date/Time: Monday, January 23, 2017 14:43 - CONCLUSION: 1. Unremarkable MR angiography of the brain. Manjit Lowry MD Head CT 01/23/17 0000 Signed Impressions: Service Date/Time: Monday, January 23, 2017 12:24 - CONCLUSION: Mild atrophy otherwise negative.. Pierre Rod MD FACR Chest X-Ray 01/23/17 0000 Signed Impressions: Service Date/Time: Monday, January 23, 2017 15:36 - CONCLUSION: No acute disease. Jesus Brown Jr., MD Brain MRI 01/23/17 0000 Signed Impressions: Service Date/Time: Monday, January 23, 2017 14:43 - CONCLUSION: 1. No evidence of acute intracranial pathology. Chronic ischemic changes as above. Possible normal pressure hydrocephalus. Correlation with clinical findings is necessary. 1. Manjit Lowry MD Micro and Labs Laboratory Tests Test 01/23/17 12:16 01/23/17 13:00 01/23/17 17:20 01/24/17 03:49 White Blood Count 13.3 Red Blood Count 4.09 Hemoglobin 13.1 Bedside Hemoglobin 13.3 Hematocrit 38.9 Bedside Hematocrit 39.0 Mean Corpuscular Volume 95.2 Mean Corpuscular Hemoglobin 32.0 Mean Corpuscular Hemoglobin Concent 33.6 Red Cell Distribution Width 13.7 Platelet Count 305 Mean Platelet Volume 8.3 Neutrophils (%) (Auto) 66.3 Lymphocytes (%) (Auto) 21.8 Monocytes (%) (Auto) 8.5 Eosinophils (%) (Auto) 2.3 Basophils (%) (Auto) 1.1 Neutrophils # (Auto) 8.8 Lymphocytes # (Auto) 2.9 Monocytes # (Auto) 1.1 Eosinophils # (Auto) 0.3 Basophils # (Auto) 0.1 CBC Comment DIFF FINAL Differential Comment Prothrombin Time 10.9 Prothromb Time International Ratio 1.0 Activated Partial Thromboplast Time 26.0 Fibrinogen 438 Bedside Sodium 139 Bedside Potassium 4.4 Bedside Chloride 103 Bedside Blood Urea Nitrogen 20 Bedside Creatinine 1.2 Bedside Glucose 121 Total Creatine Kinase 252 Creatine Kinase MB 2.3 Creatine Kinase MB % 0.9 Troponin I LESS THAN 0.02 Urine Color LIGHT-YELLOW Urine Turbidity HAZY Urine pH 7.0 Urine Specific [place] 1.009 Urine Protein NEG Urine Glucose (UA) 300 Urine Ketones NEG Urine Occult Blood NEG Urine Nitrite POS Urine Bilirubin NEG Urine Urobilinogen LESS THAN 2.0 Urine Leukocyte Esterase SMALL Urine RBC 3 Urine WBC 3 Urine Squamous Epithelial Cells 1 Urine Bacteria MANY Urine Opiates Screen NEG Urine Barbiturates Screen NEG Urine Amphetamines Screen NEG Urine Benzodiazepines Screen NEG Urine Cocaine Screen NEG Urine Cannabinoids Screen NEG Nasal Screen MRSA (PCR) MRSA NOT DETECTED Blood Urea Nitrogen 16 Creatinine 0.97 Random Glucose 112 Calcium Level 8.4 Sodium Level 138 Potassium Level 4.0 Chloride Level 106 Carbon Dioxide Level 25.4 Anion Gap 7 Estimat Glomerular Filtration Rate 56 Triglycerides Level 237 Cholesterol Level 193 LDL Cholesterol 111 HDL Cholesterol 34.2 Cholesterol/HDL Ratio 5.64 Test 01/24/17 04:22 Jair Benson MD Jan 24, 2017 09:00
[2017-01-24] MEDS ORDERED: MEMANTINE DONEPEZIL PO SCH (09:15)
[2017-01-24] MEDS: metFORMIN HCL 500 MG TAB PO SCH ×2 (09:15→18:21)
[2017-01-24] MEDS ORDERED: [UNRECOGNIZED DRUG - OTHER] PO SCH (09:15)
[2017-01-24] MEDS ORDERED: NICOTINE 14 MG/24 HR PATCH T-DERMAL PRN (09:15)
[2017-01-24] MEDS ORDERED: PILL SPLITTER OTHER PRN (09:30)
[2017-01-24] MEDS: LISINOPRIL 5 MG TAB PO SCH (11:03)
[2017-01-24] MEDS: CITALOPRAM HYDROBROMIDE 20 MG TAB PO SCH (11:03)
[2017-01-24] MEDS: CARBIDOPA/LEVODOPA 25 MG/100 MG TAB PO SCH ×2 (11:03→18:21)
[2017-01-24] MEDS: CARVEDILOL 3.125 MG TAB PO SCH ×2 (11:03→21:43)
--- NOTE | 2017-01-24 11:56 | ECHRPT ---
Indication: cva/tia CONCLUSIONS The left ventricular systolic function is normal with an estimated ejection fraction in the range of 55-60%. Normal left ventricular size. Doppler parameters are consistent with impaired left ventricular relaxtion (grade 1 diastolic dysfun ction). The right ventricle was not well visualized. The right atrium is not well visualized. The interatrial septum not well visualized. The mitral valve is not well visualized. No mitral valve stenosis. No mitral valve regurgitation. The aortic valve is not well visualized Aortic valve sclerosis is present. No aortic valve regurgitation. No aortic valve stenosis. The tricuspid valve is not well visualized. No tricuspid regurgitation. No tricuspid valve stenosis. The pulmonary valve is not well visualized. No pulmonary valve regurgitation. The inferior vena cava was not well visualized. BP: / HR: Rhythm: MEASUREMENTS (Male / Female) Normal Values Technical Quality:Technically difficult study., Po or 2D ECHO LV Diastolic Diameter PLAX 4.4 cm 4.2 - 5.9 / 3.9 - 5.3 cm LV Systolic Diameter PLAX 3.3 cm IVS Diastolic Thickness 1.1 cm 0.6 - 1.0 / 0.6 - 0.9 cm LVPW Diastolic Thickness 1.1 cm 0.6 - 1.0 / 0.6 - 0.9 cm LV Relative Wall Thickness 0.5 RV Internal Dim ED PLAX 2.5 cm M-MODE Aortic Root Diameter MM 3.2 cm LA Systolic Diameter MM 3.2 cm LA Ao Ratio MM 1.0 DOPPLER Mitral E Point Velocity 77.0 cm/s Mitral A Point Velocity 122.0 cm/s Mitral E to A Ratio 0.6 LV E' Lateral Velocity 8.0 cm/s Mitral E to LV E' Lateral Ratio 9.6 LV E' Septal Velocity 5.6 cm/s Mitral E to LV E' Septal Ratio 13.8 TR Peak Velocity 195.0 cm/s TR Peak Gradient 15.0 mmHg Right Atrial Pressure 10.0 mmHg Pulmonary Artery Systolic Pressu 25.2 mmHg Right Ventricular Systolic Press 25.2 mmHg FINDINGS LEFT VENTRICLE The left ventricular systolic function is normal with an estimated ejection fraction in the range of 55-60%. Normal left ventricular size. Doppler parameters are consistent with impaired left ventricular relaxtion (grade 1 diastolic dysfun ction). RIGHT VENTRICLE Normal right ventricular size and systolic function. The right ventricle was not well visualized. LEFT ATRIUM The left atrial size is normal. RIGHT ATRIUM The right atrium is not well visualized. ATRIAL SEPTUM The interatrial septum not well visualized. AORTA The aortic root and proximal ascending aorta are normal in size on limited imaging. MITRAL VALVE The mitral valve is not well visualized. No mitral valve stenosis. No mitral valve regurgitation. AORTIC VALVE The aortic valve is not well visualized Aortic valve sclerosis is present. No aortic valve regurgitation. No aortic valve stenosis. TRICUSPID VALVE The tricuspid valve is not well visualized. No tricuspid regurgitation. No tricuspid valve stenosis. PULMONARY VALVE The pulmonary valve is not well visualized. No pulmonary valve regurgitation. VESSELS The inferior vena cava was not well visualized. PERICARDIUM No pericardial effusion. Harmeet Del Cid MD (Electronically Signed) Final Date:24 January 2017 11:55
[2017-01-24] MEDS: risperiDONE 0.5 MG TAB PO SCH ×2 (12:21→18:21)
[2017-01-24 13:06] LABS: HEMOGLOBIN A1a 1.4 %; HEMOGLOBIN A1b 2.4 %; HEMOGLOBIN Ao 82.6 %; HEMOGLOBIN LA1C 2.3 %; HEMOGLOBIN P3 4.2 %
[2017-01-24 13:19] LABS: HEMOGLOBIN A1a 1.2 %; HEMOGLOBIN A1b 2.6 %; HEMOGLOBIN Ao 82.6 %; HEMOGLOBIN P3 5.7 %
--- NOTE | 2017-01-24 15:49 | RADRPT ---
EXAM DATE/TIME: 01/24/2017 15:21 [place] COMPARISON: CT BRAIN W/O CONTRAST, January 23, 2017, 12:24. INDICATIONS : Status post TPA. RADIATION DOSE: 43.66 CTDIvol (mGy) MEDICAL HISTORY : Stroke. Parkinsons. Dementia.diabetes SURGICAL HISTORY : None. ENCOUNTER: Subsequent ACUITY: 1 day PAIN SCALE: 0/10 LOCATION: Bilateral head TECHNIQUE: Multiple contiguous axial images were obtained of the head. Using automated exposure control and adj ustment of the mA and/or kV according to patient size, radiation dose was kept as low as reasonably a chievable to obtain optimal diagnostic quality images. DICOM format image data is available electro nically for review and comparison. FINDINGS: Noncontrast axial head CT demonstrates the ventricles to be normal in size and configuration with a n ormal sulcal pattern. No acute intracranial hemorrhage, acute cortical infarction, mass or midline sh ift is seen. There is periventricular hypodensity compatible with chronic ischemic change slightly mo re than expected for patient this age. Posterior fossa structures are unremarkable. Bone windows are unremarkable. CONCLUSION: 1. No evidence of acute intracranial pathology. Chronic ischemic changes as above. Manjit Lowry MD on January 24, 2017 at 15:46 Board Certified Radiologist. This report was verified electronically.
[2017-01-24] MEDS: REMOVE OLD NICODERM (NICOTINE) PATCH T-DERMAL SCH (21:00)
[2017-01-24] MEDS: DONEPEZIL HCL 5 MG TAB PO SCH (21:43)
[2017-01-24] MEDS: ATORVASTATIN 40 MG TAB PO SCH (21:43)
[2017-01-24] MEDS: MORPHINE SULFATE 4 MG/ML INJ IV PUSH PRN ×2 (21:44)
[2017-01-25] VITALS (7 sets, daily range): BP systolic 109–134; BP diastolic 53–63; PULSE 56–73; RESP 18–20; TEMP 97.2–98.7; O2SAT 95–99
[2017-01-25] MEDS: CHLORHEXIDINE GLUCONATE 2 % 1 PACK (2 CLOTHS) TOP SCH (01:36)
[2017-01-25] MEDS: CARBIDOPA/LEVODOPA 25 MG/100 MG TAB PO SCH ×3 (01:45→18:28)
[2017-01-25] MEDS: INSULIN ASPART SUPPLEMENTAL SCALE SQ SCH ×4 (03:41→22:00)
--- NOTE | 2017-01-25 07:28 | HHI.PR ---
Subjective Remarks The patient has been seen and examined this morning. Vitals overall stable and she is afebrile. Family concerned she has a UTI because she gets them frequently and her urine is dark. Family reports hx of recurrent UTI ESBL. Patient reports she feels like herself and that her speech is at baseline. Did feel weak this am with PT. Objective Vital Signs Date Time Temp Pulse Resp B/P (MAP) Pulse Ox O2 Delivery O2 Flow Rate FiO2 01/25/17 06:01 98.0 64 20 109/55 (73) 98 01/25/17 01:58 95 Nasal Cannula 1.00 01/25/17 00:43 98.2 69 20 110/53 (72) 95 01/25/17 00:20 Nasal Cannula 2.00 01/24/17 20:16 98.8 78 20 110/56 (74) 94 01/24/17 17:40 98.2 68 16 119/57 (77) 96 01/24/17 17:00 Nasal Cannula 1.00 01/24/17 16:00 98.6 99 23 129/58 (81) 95 01/24/17 15:00 74 01/24/17 12:00 98.7 77 23 130/59 (82) 94 01/24/17 10:07 97 21 01/24/17 08:00 98.4 98 24 162/109 (126) 93 I/O 01/24/17 01/24/17 01/24/17 01/25/17 01/25/17 01/25/17 07:00 15:00 23:00 07:00 15:00 23:00 Intake Total 798 ml 1441 ml 796 ml Output Total 1025 ml 600 ml 350 ml Balance -227 ml 841 ml 446 ml Intake Oral 0 ml 480 ml IV Total 798 ml 961 ml 796 ml Output Urine Total 1025 ml 600 ml 350 ml # Bowel Movements 0 1 Result Diagram: 01/23/17 1216 01/24/17 0349 Imaging Last Impressions Head CT 01/24/17 1400 Signed Impressions: Service Date/Time: Tuesday, January 24, 2017 15:21 - CONCLUSION: 1. No evidence of acute intracranial pathology. Chronic ischemic changes as above. Manjit Lowry MD Neck Magnetic Resonance Angiography 01/23/17 0000 Signed Impressions: Service Date/Time: Monday, January 23, 2017 14:43 - CONCLUSION: 1. 40%% stenosis involving the proximal ICA. Suspected post endarterectomy changes involving the left which are patent. Patent vertebral arteries. Jesus Brown Jr., MD Head Magnetic Resonance Angiography 01/23/17 Signed Impressions: Service Date/Time: Monday, January 23, 2017 14:43 - CONCLUSION: 1. Unremarkable MR angiography of the brain. Manjit Lowry MD Chest X-Ray 01/23/17 Signed Impressions: Service Date/Time: Monday, January 23, 2017 15:36 - CONCLUSION: No acute disease. Jesus Brown Jr., MD Brain MRI 01/23/17 Signed Impressions: Service Date/Time: Monday, January 23, 2017 14:43 - CONCLUSION: 1. No evidence of acute intracranial pathology. Chronic ischemic changes as above. Possible normal pressure hydrocephalus. Correlation with clinical findings is necessary. 1. Manjit Lowry MD Objective Remarks GENERAL: sitting in chair, well appearing SKIN: Warm and dry. HEAD: Normocephalic. EYES: No scleral icterus. No injection or drainage. NECK: Supple, trachea midline. No JVD or lymphadenopathy. CARDIOVASCULAR: Regular rate and rhythm without murmurs, gallops, or rubs. RESPIRATORY: Breath sounds equal bilaterally. No accessory muscle use. GASTROINTESTINAL: Abdomen soft, non-tender, nondistended. MUSCULOSKELETAL: No cyanosis, or edema. No calf tenderness. 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 A/P Problem List: (1) CVA (cerebral vascular accident) ICD Code: I63.9 - Cerebral infarction, unspecified Status: Acute (2) DM (diabetes mellitus) ICD Code: E11.9 - Diabetes mellitus Status: Acute (3) Depression ICD Code: F32.9 - Depression Status: Acute (4) HLD (hyperlipidemia) ICD Code: E78.5 - Hyperlipidemia Status: Acute (5) HTN (hypertension) ICD Code: I10 - Hypertension Status: Acute (6) Smoking ICD Code: F17.200 - Current smoker Status: Acute (7) UTI (urinary tract infection) ICD Code: N39.0 - Urinary tract infection, site not specified Assessment and Plan 76-year-old female presents to the ED with right arm and leg weakness and slurring of speech. CT and MRA were negative, the patient received TPA in the ED. The patient has history of large CVA approximately one year ago. After TPA patient intermittently improved. Patient initially managed in the ICU and care is none transferred hospitalist. Acute CVA: Left hemispheric stroke status post TPA. - Followed by neuro, start ASA today - Lipid profile reviewed, significant for slightly elevated LDL and total cholesterol. Lipitor 40 mg at bedtime initiated. - Follow up CT showed no evidence of acute intracranial pathology - Speech therapy recommends mechanical soft diet, chopped meat with gravy, thin liquids - PT recommends home with home health, bedside commode, wheeled walker UTI - U/A on 01/23 significant for UTI - Will treat with rocephin, unfortunately urine culture not obtained Diabetes - A1c 6.7 - Metformin 1000 mg twice a day Hypertension - BP an acceptable range - Continue carvedilol 3.125 twice a day, lisinopril 2.5 mg daily - Hydralazine when necessary Parkinson's: Continue home meds Discharge Planning DC pending continued improvement. Problem Qualifiers (1) CVA (cerebral vascular accident): Qualified Codes: I63.9 - Cerebral infarction, unspecified Cyn Coughlin MD Jan 25, 2017 07:28
[2017-01-25] MEDS: SODIUM CHLOR 0.9% 1000 ML INJ 1,000 ML IV SCH ×2 (07:45→21:05)
[2017-01-25] MEDS: SODIUM CHLORIDE 0.9% FLUSH 10 ML FLUSH IV FLUSH SCH ×2 (09:00→21:00)
[2017-01-25] MEDS: LISINOPRIL 5 MG TAB PO SCH (10:05)
[2017-01-25] MEDS: CARVEDILOL 3.125 MG TAB PO SCH ×2 (10:06→22:46)
[2017-01-25] MEDS: ASPIRIN 325 MG TAB PO SCH (10:06)
[2017-01-25] MEDS: metFORMIN HCL 500 MG TAB PO SCH ×2 (10:06→18:28)
[2017-01-25] MEDS: CITALOPRAM HYDROBROMIDE 20 MG TAB PO SCH (10:06)
[2017-01-25] MEDS: risperiDONE 0.5 MG TAB PO SCH ×3 (10:06→18:28)
[2017-01-25] MEDS: FAMOTIDINE 20 MG/2 ML VIAL IV PUSH SCH ×2 (10:07→22:46)
[2017-01-25] MEDS: MORPHINE SULFATE 4 MG/ML INJ IV PUSH PRN (10:42)
[2017-01-25] MEDS: cefTRIAXone INJ 1,000 MG in SODIUM CHLORIDE 0.9% INJ 100 ML IV SCH (11:30)
[2017-01-25] MEDS: REMOVE OLD NICODERM (NICOTINE) PATCH T-DERMAL SCH (21:00)
[2017-01-25] MEDS: ATORVASTATIN 40 MG TAB PO SCH (22:46)
[2017-01-25] MEDS: DONEPEZIL HCL 5 MG TAB PO SCH (22:46)
[2017-01-26 01:21] VITALS: BP 124/59; PULSE 63; RESP 18; TEMP 98.4; O2SAT 97
[2017-01-26] MEDS: CARBIDOPA/LEVODOPA 25 MG/100 MG TAB PO SCH ×3 (03:15→18:34)
[2017-01-26] MEDS: INSULIN ASPART SUPPLEMENTAL SCALE SQ SCH ×4 (03:16→22:00)
[2017-01-26] MEDS: CHLORHEXIDINE GLUCONATE 2 % 1 PACK (2 CLOTHS) TOP SCH (04:00)
[2017-01-26 08:00] VITALS: BP 129/60; PULSE 57; RESP 18; TEMP 97.3; O2SAT 98
[2017-01-26] MEDS: SODIUM CHLORIDE 0.9% FLUSH 10 ML FLUSH IV FLUSH SCH ×2 (09:00→22:19)
[2017-01-26] MEDS: FAMOTIDINE 20 MG/2 ML VIAL IV PUSH SCH ×2 (10:01→22:18)
[2017-01-26] MEDS: metFORMIN HCL 500 MG TAB PO SCH ×2 (10:01→18:34)
[2017-01-26] MEDS: CARVEDILOL 3.125 MG TAB PO SCH ×2 (10:02→22:18)
[2017-01-26] MEDS: CITALOPRAM HYDROBROMIDE 20 MG TAB PO SCH (10:02)
[2017-01-26] MEDS: ASPIRIN 325 MG TAB PO SCH (10:02)
[2017-01-26] MEDS: LISINOPRIL 5 MG TAB PO SCH (10:02)
[2017-01-26] MEDS: SODIUM CHLOR 0.9% 1000 ML INJ 1,000 ML IV SCH ×2 (10:04→23:45)
[2017-01-26] MEDS: risperiDONE 0.5 MG TAB PO SCH ×3 (12:15→18:00)
[2017-01-26] MEDS: cefTRIAXone INJ 1,000 MG in SODIUM CHLORIDE 0.9% INJ 100 ML IV SCH (12:16)
[2017-01-26 12:18] VITALS: BP 124/58; PULSE 62; RESP 20; TEMP 98.4; O2SAT 94
--- NOTE | 2017-01-26 13:00 | HHI.FF ---
Face to Face Verification Diagnosis: (1) CVA (cerebral vascular accident) (2) UTI (urinary tract infection) Physical Therapy Order: Evaluate and Treat Home Health Nursing Order: Signs/symptoms of disease process I have seen patient Brii Simmons on 01/26/17. My clinical findings support the need for the requested home health care services because: Deconditioned w/ increased weakness I certify that my clinical findings support that this patient is homebound because: Poor cardiac reserve Toby Rodriguez MD Jan 26, 2017 13:00
[2017-01-26] MEDS ORDERED: WALKER WHEELS/F1 MIS (13:02)
[2017-01-26] MEDS ORDERED: BEDSIDE COMMODE1 MI1 (13:02)
[2017-01-26 16:20] VITALS: BP 119/57; PULSE 65; RESP 20; TEMP 98.5; O2SAT 97
--- NOTE | 2017-01-26 16:21 | HHI.PR ---
Subjective Remarks Follow-up CVA/UTI 01/26/17-patient seen and examined, no acute event overnight. Move all extremities well. No facial weakness. Objective Vitals Vital Signs Date Time Temp Pulse Resp B/P (MAP) Pulse Ox O2 Delivery O2 Flow Rate FiO2 01/26/17 12:18 98.4 62 20 124/58 (80) 94 01/26/17 08:00 97.3 57 18 129/60 (83) 98 01/26/17 01:21 98.4 63 18 124/59 (80) 97 01/25/17 23:27 Room Air 01/25/17 21:16 97.2 60 18 111/54 (73) 97 01/25/17 17:39 97 Nasal Cannula 2.00 01/25/17 16:34 98.6 73 20 114/56 (75) 97 I/O 01/25/17 01/25/17 01/25/17 01/26/17 01/26/17 01/26/17 07:00 15:00 23:00 07:00 15:00 23:00 Intake Total 796 ml 360 ml 720 ml Output Total 350 ml 425 ml 700 ml 625 ml Balance 446 ml -65 ml -700 ml 95 ml Intake Oral 360 ml 720 ml IV Total 796 ml Output Urine Total 350 ml 425 ml 700 ml 625 ml # Bowel Movements 0 Result Diagram: 01/23/17 1216 01/24/17 0349 Imaging Last Impressions Head CT 01/24/17 1400 Signed Impressions: Service Date/Time: Tuesday, January 24, 2017 15:21 - CONCLUSION: 1. No evidence of acute intracranial pathology. Chronic ischemic changes as above. Manjit Lowry MD Neck Magnetic Resonance Angiography 01/23/17 0000 Signed Impressions: Service Date/Time: Monday, January 23, 2017 14:43 - CONCLUSION: 1. 40%% stenosis involving the proximal ICA. Suspected post endarterectomy changes involving the left which are patent. Patent vertebral arteries. Jesus Brown Jr., MD Head Magnetic Resonance Angiography 01/23/17 0000 Signed Impressions: Service Date/Time: Monday, January 23, 2017 14:43 - CONCLUSION: 1. Unremarkable MR angiography of the brain. Manjit Lowry MD Chest X-Ray 01/23/17 0000 Signed Impressions: Service Date/Time: Monday, January 23, 2017 15:36 - CONCLUSION: No acute disease. Jesus Brown Jr., MD Brain MRI 01/23/17 0000 Signed Impressions: Service Date/Time: Monday, January 23, 2017 14:43 - CONCLUSION: 1. No evidence of acute intracranial pathology. Chronic ischemic changes as above. Possible normal pressure hydrocephalus. Correlation with clinical findings is necessary. 1. Manjit Lowry MD Objective Remarks GENERAL: NAD SKIN: Warm and dry. HEAD: Normocephalic. EYES: No scleral icterus. No injection or drainage. NECK: Supple, trachea midline. No JVD or lymphadenopathy. CARDIOVASCULAR: Regular rate and rhythm without murmurs, gallops, or rubs. RESPIRATORY: Breath sounds equal bilaterally. No accessory muscle use. GASTROINTESTINAL: Abdomen soft, non-tender, nondistended. MUSCULOSKELETAL: No cyanosis, or edema. BACK: Nontender without obvious deformity. No CVA tenderness. Procedures none A/P Problem List: (1) CVA (cerebral vascular accident) ICD Code: I63.9 - Cerebral infarction, unspecified Status: Acute (2) UTI (urinary tract infection) ICD Code: N39.0 - Urinary tract infection, site not specified Assessment and Plan 76-year-old female with Acute CVA: Left hemispheric stroke status post TPA. Appreciate input from neurology Continue with aspirin, Lipitor 40 mg daily PT/speech/PT to treat and eval Urinary tract infection Currently on Rocephin IV daily, check culture and sensitivity Diabetes A1c 6.7 Metformin 1000 mg twice a day Hypertension Continue carvedilol 3.125 twice a day, lisinopril 2.5 mg daily Hydralazine when necessary Parkinson's: Continue home meds DVT prophylaxis: Bilateral SCDs Problem Qualifiers (1) CVA (cerebral vascular accident): Qualified Codes: I63.9 - Cerebral infarction, unspecified Toby Rodriguez MD Jan 26, 2017 16:21
--- NOTE | 2017-01-26 17:54 | HHI.PR ---
Review/Management Daily Summary 01/24 much improved, now moves right lims well and no facial weakness speech probably normal wants to get up ok to start mobility after 24 hrs start asa, has another ct brain f/u post tpa lipid profile 01/26 anxious and ambulating with pt, needs assistance to be safe oob spoke to RN continue supportive care and rehab asa, statin, ideal ldl below 70 Subjective Subjective Comments No new neuro events reported No headache Active Medications Current Medications Medications (Trade) Dose Ordered Sig/Loki Route Start Time Stop Time Status Last Admin Sodium Chloride 1,000 ml @ 75 mls/hr [id number] IV 01/23/17 15:45 01/26/17 10:04 (NS Flush) 2 ml UNSCH PRN IV FLUSH 01/23/17 15:45 (NS Flush) 2 ml BID IV FLUSH 01/23/17 21:00 01/24/17 21:00 (Tylenol) 650 mg Q6H PRN PO 01/23/17 15:45 (Morphine Inj) 2 mg Q2H PRN IV PUSH 01/23/17 15:45 01/25/17 10:42 (Zofran Inj) 4 mg Q6H PRN IV PUSH 01/23/17 15:45 (Duoneb Neb) 1 ampule Q4HR NEB PRN INH 01/23/17 15:45 Miscellaneous Information 1 [id number] XX 01/23/17 15:45 (Chlorhexidine 2% Cloth) 3 pack Taper DAILY@04 TOP 01/24/17 04:00 01/20/18 03:59 (Chlorhexidine 2% Cloth) 3 pack UNSCH PRN TOP 01/23/17 15:45 (D50w (Vial) Inj) 50 ml UNSCH PRN IV PUSH 01/23/17 16:00 (Glucagon Inj) 1 mg UNSCH PRN OTHER 01/23/17 16:00 (NovoLOG SUPPLEMENTAL SCALE) 1 Q6H SQ 01/23/17 16:00 01/25/17 22:00 (Apresoline Inj) 10 mg Q2H PRN IV PUSH 01/23/17 18:00 01/24/17 08:35 (Lipitor) 40 mg HS PO 01/24/17 21:00 01/25/17 22:46 (Sinemet 25-100 Mg) 1 tab Q8H PO 01/24/17 10:00 01/26/17 10:01 (Coreg) 3.125 mg Q12HR PO 01/24/17 09:15 01/26/17 10:02 (CeleXA) 20 mg DAILY PO 01/24/17 09:15 01/26/17 10:02 (Glucophage) 1,000 mg BIDPC PO 01/24/17 09:15 01/26/17 10:01 (Habitrol 14 Mg Patch.24 Hr) 14 patch DAILY PRN T-DERMAL 01/24/17 09:15 (risperDAL) 0.5 mg TID PO 01/24/17 13:00 01/26/17 12:15 (Aricept) 10 mg HS PO 01/24/17 21:00 01/25/17 22:46 (Prinivil) 2.5 mg DAILY PO 01/24/17 09:15 01/26/17 10:02 Patient Own Medication PT OWN MED: NAMZA... DAILY PO 01/24/17 09:15 Future Hold Miscellaneous Information 1 HS T-DERMAL 01/24/17 21:00 (Pill Splitter) 1 ea UNSCH PRN OTHER 01/24/17 09:30 (Pepcid Inj) 10 mg Q12HR IV PUSH 01/24/17 21:00 01/26/17 10:01 (Aspirin) 325 mg DAILY PO 01/25/17 09:00 01/26/17 10:02 Ceftriaxone Sodium 1000 mg/ Sodium Chloride 100 ml @ 200 mls/hr Q24H IV 01/25/17 11:00 01/26/17 12:16 Allergies Allergies Coded Allergies iodine (Unverified Allergy, Unknown, IVP, 01/23/17) potassium iodide (Unverified Allergy, Unknown, IVP, 01/23/17) povidone-iodine (Unverified Allergy, Unknown, IVP, 01/23/17) sodium iodide (Unverified Allergy, Unknown, IVP, 01/23/17) sodium iodide (Unverified Allergy, Unknown, IVP, 01/23/17) Exam I&O / VS 01/26/17 01/26/17 01/27/17 14:59 22:59 06:59 Intake Total 720 ml Output Total 950 ml Balance -230 ml Intake Oral 720 ml Output Urine Total 950 ml # Bowel Movements 0 Vital Signs Date Time Temp Pulse Resp B/P (MAP) Pulse Ox O2 Delivery O2 Flow Rate FiO2 01/26/17 16:20 98.5 65 20 119/57 (77) 97 01/26/17 12:18 98.4 62 20 124/58 (80) 94 01/26/17 08:00 97.3 57 18 129/60 (83) 98 01/26/17 01:21 98.4 63 18 124/59 (80) 97 01/25/17 23:27 Room Air 01/25/17 21:16 97.2 60 18 111/54 (73) 97 Objective Radiology Results Laboratory Tests Test 01/24/17 03:49 01/24/17 04:22 Random Glucose 112 MG/DL (74-106) Calcium Level 8.4 MG/DL (8.5-10.1) Estimat Glomerular Filtration Rate 56 ML/MIN (>89) Triglycerides Level 237 MG/DL (42-150) LDL Cholesterol 111 MG/DL (0-99) HDL Cholesterol 34.2 MG/DL (40.0-60.0) Hemoglobin A1c 6.7 % (4.3-6.0) Jair Benson MD Jan 26, 2017 17:54
[2017-01-26 21:00] VITALS: BP 141/67; PULSE 65; RESP 17; TEMP 97.9; O2SAT 95
[2017-01-26] MEDS: REMOVE OLD NICODERM (NICOTINE) PATCH T-DERMAL SCH (21:00)
[2017-01-26 21:01] LABS: BACTERIA, URINE MANY /hpf; BLOOD, URINE NEG (NEG); COMMENT (UR) CULTURE INDICATED; CULTURE IF INDICATED CULTURE INDICATED; GLUCOSE,URINE 300 mg/dL (NEG); KETONE, URINE NEG (NEG); NITRITE,URINE NEG (NEG); SQUAMOUS EPITHELIAL CELL URINE <1 /hpf (0-5); URINE COLOR LIGHT-YELLOW (YELLW/STRAW)
[2017-01-26] MEDS: ATORVASTATIN 40 MG TAB PO SCH (22:18)
[2017-01-26] MEDS: DONEPEZIL HCL 5 MG TAB PO SCH (22:18)
[2017-01-27 00:15] VITALS: BP 135/69; PULSE 60; RESP 18; TEMP 98; O2SAT 96
[2017-01-27] MEDS: CARBIDOPA/LEVODOPA 25 MG/100 MG TAB PO SCH ×2 (03:37→09:54)
[2017-01-27] MEDS: INSULIN ASPART SUPPLEMENTAL SCALE SQ SCH ×2 (03:41→10:00)
[2017-01-27] MEDS: CHLORHEXIDINE GLUCONATE 2 % 1 PACK (2 CLOTHS) TOP SCH (03:42)
[2017-01-27 04:00] VITALS: BP 130/66; PULSE 66; RESP 17; TEMP 97.9; O2SAT 95
[2017-01-27 08:17] VITALS: BP 165/86; PULSE 59; RESP 20; TEMP 98.2; O2SAT 94
[2017-01-27] MEDS: metFORMIN HCL 500 MG TAB PO SCH (09:54)
[2017-01-27] MEDS: ASPIRIN 325 MG TAB PO SCH (09:54)
[2017-01-27] MEDS: SODIUM CHLORIDE 0.9% FLUSH 10 ML FLUSH IV FLUSH SCH (09:54)
[2017-01-27] MEDS: FAMOTIDINE 20 MG/2 ML VIAL IV PUSH SCH (09:54)
[2017-01-27] MEDS: CITALOPRAM HYDROBROMIDE 20 MG TAB PO SCH (09:54)
[2017-01-27] MEDS: risperiDONE 0.5 MG TAB PO SCH ×2 (09:54→12:18)
[2017-01-27] MEDS: CARVEDILOL 3.125 MG TAB PO SCH (09:54)
[2017-01-27] MEDS: LISINOPRIL 5 MG TAB PO SCH (09:54)
--- NOTE | 2017-01-27 10:55 | HHI.PR ---
Subjective Remarks Follow-up CVA/UTI 01/26/17-patient seen and examined, no acute event overnight. Move all extremities well. No facial weakness. 01/27/17-patient seen and examined, stable and no complaint. Objective Vitals Vital Signs Date Time Temp Pulse Resp B/P (MAP) Pulse Ox O2 Delivery O2 Flow Rate FiO2 01/27/17 08:17 98.2 59 20 165/86 (112) 94 01/27/17 04:00 97.9 66 17 130/66 (87) 95 01/27/17 00:15 98.0 60 18 135/69 (91) 96 01/26/17 23:45 Room Air 01/26/17 21:00 97.9 65 17 141/67 (91) 95 01/26/17 16:20 98.5 65 20 119/57 (77) 97 01/26/17 12:18 98.4 62 20 124/58 (80) 94 I/O 01/26/17 01/26/17 01/26/17 01/27/17 01/27/17 01/27/17 07:00 15:00 23:00 07:00 15:00 23:00 Intake Total 720 ml 650 ml 1925 ml Output Total 700 ml 950 ml 600 ml 1000 ml Balance -700 ml -230 ml 50 ml 925 ml Intake Oral 720 ml 650 ml 925 ml IV Total 1000 ml Output Urine Total 700 ml 950 ml 600 ml 1000 ml # Bowel Movements 0 0 0 Result Diagram: 01/23/17 1216 01/24/17 0349 Imaging Last Impressions Head CT 01/24/17 1400 Signed Impressions: Service Date/Time: Tuesday, January 24, 2017 15:21 - CONCLUSION: 1. No evidence of acute intracranial pathology. Chronic ischemic changes as above. Manjit Lowry MD Neck Magnetic Resonance Angiography 01/23/17 0000 Signed Impressions: Service Date/Time: Monday, January 23, 2017 14:43 - CONCLUSION: 1. 40%% stenosis involving the proximal ICA. Suspected post endarterectomy changes involving the left which are patent. Patent vertebral arteries. Jesus Brown Jr., MD Head Magnetic Resonance Angiography 01/23/17 0000 Signed Impressions: Service Date/Time: Monday, January 23, 2017 14:43 - CONCLUSION: 1. Unremarkable MR angiography of the brain. Manjit Lowry MD Chest X-Ray 01/23/17 0000 Signed Impressions: Service Date/Time: Monday, January 23, 2017 15:36 - CONCLUSION: No acute disease. Jesus Brown Jr., MD Brain MRI 01/23/17 0000 Signed Impressions: Service Date/Time: Monday, January 23, 2017 14:43 - CONCLUSION: 1. No evidence of acute intracranial pathology. Chronic ischemic changes as above. Possible normal pressure hydrocephalus. Correlation with clinical findings is necessary. 1. Manjit Lowry MD Objective Remarks GENERAL: NAD SKIN: Warm and dry. HEAD: Normocephalic. EYES: No scleral icterus. No injection or drainage. NECK: Supple, trachea midline. No JVD or lymphadenopathy. CARDIOVASCULAR: Regular rate and rhythm without murmurs, gallops, or rubs. RESPIRATORY: Breath sounds equal bilaterally. No accessory muscle use. GASTROINTESTINAL: Abdomen soft, non-tender, nondistended. MUSCULOSKELETAL: No cyanosis, or edema. BACK: Nontender without obvious deformity. No CVA tenderness. Procedures none A/P Problem List: (1) CVA (cerebral vascular accident) ICD Code: I63.9 - Cerebral infarction, unspecified Status: Acute (2) UTI (urinary tract infection) ICD Code: N39.0 - Urinary tract infection, site not specified Assessment and Plan 76-year-old female with Acute CVA: Left hemispheric stroke status post TPA. Appreciate input from neurology Continue with aspirin, Lipitor 40 mg daily PT/speech/PT to treat and eval Urinary tract infection Currently on Rocephin IV daily, will switch to Macrobid 100 mg by mouth twice a day Diabetes A1c 6.7 Metformin 1000 mg twice a day Hypertension Continue carvedilol 3.125 twice a day, lisinopril 2.5 mg daily Hydralazine when necessary Parkinson's: Continue home meds DVT prophylaxis: Bilateral SCDs Problem Qualifiers (1) CVA (cerebral vascular accident): Qualified Codes: I63.9 - Cerebral infarction, unspecified Toby Rodriguez MD Jan 27, 2017 10:55
[2017-01-27] MEDS ORDERED: ASPI325T PO (10:58)
[2017-01-27] MEDS ORDERED: MACR100C2 PO (10:58)
[2017-01-27] MEDS ORDERED: ATOR40TA16 PO (10:58)
--- NOTE | 2017-01-27 11:03 | HHI.DS ---
Discharge Summary Admission Date Jan 23, 2017 at 13:57 Discharge Date: Jan 27, 2017 Admitting Diagnosis CVA (1) CVA (cerebral vascular accident) ICD Code: I63.9 - Cerebral infarction, unspecified Status: Acute (2) UTI (urinary tract infection) ICD Code: N39.0 - Urinary tract infection, site not specified Procedures none Brief History - From Admission 76 y/o right-handed woman developed sudden right arm and leg weakness with slurring of speech about 15 - 20 minutes prior to arrival to ED. Head CT and MRA negative for acute injury; received tPA in ED. She had a large CVA about a year ago. No chest pain, SOB, nausea, vomiting, headache, or seizures. Speech intermittently improved after tPA. Strength right arm improved, right leg slightly improved. CBC/BMP: 01/23/17 1216 01/24/17 0349 Significant Findings Laboratory Tests Test 01/26/17 19:00 Urine Glucose (UA) 300 mg/dL (NEG) Urine Leukocyte Esterase SMALL (NEG) Urine RBC 5 /hpf (0-3) Urine Bacteria MANY /hpf (NONE) Urine Yeast (Budding) MOD (NONE) PE at Discharge GENERAL: NAD SKIN: Warm and dry. HEAD: Normocephalic. EYES: No scleral icterus. No injection or drainage. NECK: Supple, trachea midline. No JVD or lymphadenopathy. CARDIOVASCULAR: Regular rate and rhythm without murmurs, gallops, or rubs. RESPIRATORY: Breath sounds equal bilaterally. No accessory muscle use. GASTROINTESTINAL: Abdomen soft, non-tender, nondistended. MUSCULOSKELETAL: No cyanosis, or edema. BACK: Nontender without obvious deformity. No CVA tenderness. Hospital Course Patient admitted secondary to acute CVA due to left hemispheric stroke for which neurology was consulted and patient was treated with TPA. Posttreatment was started on Lipitor. Aspirin was initiated 3 days post TPA treatment. She was also started on statin for hyperlipidemia. PT/OT as well as speech therapy were all consulted. Patient was also treated for urinary tract infections push IV Rocephin which was subsequently switched to Macrobid on discharge. She was place on sliding scale insulin and subsequently continued on her metformin. Treatment for other chronic medical conditions were resumed accordingly. DVT and GI prophylaxis were provided. Prior to discharge, patient's condition improved and vitals remained stable. Pt Condition on Discharge: Stable Discharge Disposition: Discharge to SNF Discharge Time: > 30 minutes Discharge Instructions DIET: Follow Instructions for: Diabetic Diet Speech Therapy-Diet Recommends: Soft Activities you can perform: Regular-No Restrictions Follow up Referrals: Neurology PCP Follow-up - 2-3 Days New Medications: Bedside Commode (Bedside Commode) 1 Mis Mis EA .ROUTE DIRECTED, #1 Nitrofurantoin Monohydrate Macrocrystals (Macrobid) 100 Mg Capsule 100 MG PO BID for Infection, #14 CAP 0 Refills Walker with Front Wheels (Walker with Front Wheels) 1 Mis Mis EA .ROUTE DIRECTED, #1 0 Refills Aspirin (Aspirin) 325 Mg Tab 325 MG PO DAILY for Prevent Blood Clot, #30 TAB 11 Refills Atorvastatin (Atorvastatin) 40 Mg Tab 40 MG PO HS for Cholesterol Management, #30 TAB 11 Refills Continued Medications: Bisacodyl Supp (Dulcolax Supp) 10 Mg Supp 10 MG RECTAL IN THE AM PRN for IF NO RESULTS FROM MILK OF MAG, #12 SUPP 0 Refills Canagliflozin (Invokana) 100 Mg Tab 100 MG PO DAILY for Blood Sugar Management, #30 TAB 0 Refills Take before 1st meal of day. Carbidopa-Levodopa (Sinemet) 25-100 Mg Tab 1 TAB PO Q8HR for Parkinson Disease Mgmt, #90 TAB 0 Refills Carvedilol (Coreg) 3.125 Mg Tab 3.125 MG PO Q12HR for HTN, #60 TAB 0 Refills Citalopram (Celexa) 20 Mg Tab 20 MG PO DAILY for Control Depression, #30 TAB 0 Refills Cranberry Conc/C/Bacill Coag (Cranberry Tablet) 450 Mg-30 Mg-50 Million Cell Tablet 1 TAB PO BID for Urinary Infections Donepezil HCl (Aricept) 10 Mg Tablet 10 MG PO HS for Dementia Ibuprofen (Ibuprofen) 400 Mg Tab 400 MG PO Q6H PRN for PAIN, TAB 0 Refills Insulin Human Regular Inj (Humulin R Inj) 1,000 Unit/10 Ml Vial 7 UNITS SQ TID for Blood Sugar Management, #10 ML 0 Refills Lisinopril (Lisinopril) 2.5 Mg Tab 2.5 MG PO DAILY, #30 TAB 0 Refills Magnesium Hydroxide Liq (Milk of Magnesia Liq) 400 Mg/5 Ml Susp 30 ML PO HS PRN for IF NO BM IN 3 DAYS, #1 BOTTLE 0 Refills Memantine-Donepezil (Namzaric) 28-10 Mg Cap 1 CAP PO DAILY for Alzheimer Dementia, #30 CAP 0 Refills Metformin (Metformin) 1,000 Mg Tab 1000 MG PO BID for Blood Sugar Management, #60 TAB 0 Refills Nicotine Patch (Nicotine Patch) 14 Mg/24 Hr Patch 14 MG T-DERMAL DAILY PRN for Smoking Cessation, #30 PATCH 0 Refills Pantoprazole (Pantoprazole) 40 Mg Tab 40 MG PO DAILY for Reflux, #30 TAB 0 Refills Risperidone (Risperdal) 0.5 Mg Tab 0.5 MG PO TID, #60 TAB 0 Refills BRAND MEDICALLY NECESSARY Sodium Phosphates (Enema Disposable) 19 Gram-7 Gram/118 Ml [place] 1 APPLIC RECTAL IN THE AM PRN for IF NO RESULTS FROM DULCOLAX Discontinued Medications: Aspirin DR (Aspirin Adult Low Strength) 81 Mg Tabdr 81 MG PO DAILY, TAB Hydroxyzine Pamoate (Vistaril) 25 Mg Cap 25 MG PO Q8HR PRN for ITCHING, CAP 0 Refills Insulin Human Regular Inj (Humulin R Inj) 1,000 Unit/10 Ml Vial 0-10 UNITS SQ TID for Blood Sugar Management, #10 ML Inject as per sliding scale, if:0-200=0 units, 201-250=2 units, 251-300=4 units, 301-350=6 units, 351-400=8 units, 401-450=10 units, if BS less than 60 or higher than 450, call MD Rodriguez,Toby HATCH Jan 27, 2017 11:03
[2017-01-27] MEDS: cefTRIAXone INJ 1,000 MG in SODIUM CHLORIDE 0.9% INJ 100 ML IV SCH (12:18)
[2017-01-27] MEDS: SODIUM CHLOR 0.9% 1000 ML INJ 1,000 ML IV SCH (12:18)
[2017-01-27 12:34] VITALS: BP 141/63; PULSE 63; RESP 20; TEMP 97.6; O2SAT 97
== END 2017-01-27 14:03 | DRG 65 ==
LOC: NEPC 12:12 → NEDA 13:57 → N03B 17:08 → N05A 01-24 17:08
PROVIDERS: ADMIT Hospitalist; ATTEND Hospitalist
DX: I63.9 Cerebral infarction, unspecified (principal); G81.91 Hemiplegia, unspecified affecting right dominant side; G20 Parkinson's disease; F03.90 Unspecified dementia, unspecified severity, without behavioral disturbance, psychotic disturbance, mood disturbance, and anxiety; N39.0 Urinary tract infection, site not specified; E11.9 Type 2 diabetes mellitus without complications; I10 Essential (primary) hypertension; E78.00 Pure hypercholesterolemia, unspecified; E78.5 Hyperlipidemia, unspecified; R29.810 Facial weakness; R47.01 Aphasia; F32.9 Major depressive disorder, single episode, unspecified; F17.200 Nicotine dependence, unspecified, uncomplicated; Z79.84 Long term (current) use of oral hypoglycemic drugs; Z79.899 Other long term (current) drug therapy; Z86.73 Personal history of transient ischemic attack (TIA), and cerebral infarction without residual deficits; Z87.440 Personal history of urinary (tract) infections
CPT/HCPCS: 51702; 70450; 70544; 70548; 70553; 71010; 80048; 80061; 80307; 81001; 82435; 82550; 82552; 82565; 82947; 82948; 83036; 84132; 84295; 84484; 84520; 85025; 85384; 85610; 85730; 86850; 86900; 86901; 87077; 87086; 87186; 87641; 93005; 93306; 96365; 96368; 96375; A9579; J0360; J0696; J1815; J2270; J2997; J7030; J7050